=== PATIENT | female | born 1975 | race Caucasian/White ===

== ENCOUNTER 2018-03-01 15:19 | Inpatient (IN) | payer OTHER ==
[~2018-03-01] VITALS: Ht 170.2 cm; Wt 120.7 kg
[2018-03-01 15:25] VITALS: BP 152/92
--- NOTE | 2018-03-01 15:28 | NUR ---
PT AMBULATES TO BED 7
--- NOTE | 2018-03-01 15:30 | NUR ---
42 YO F BIB FAMILY W/ C/O DIZZINESS X TODAY. PT STATES THAT SHE "FEELS WEIRD". REPORTS INTERMITTENT NAUSEA, DENIES VOMITING. DENIES INJURY TO HEAD NECK. AAOX4, NEURO APPROPRIATE. PERRLA INTACT, PUPILS 3MM. SKIN IS INTACT, PINK/WARM/DRY; AAOX4, PERRL, WITH EVEN AND STEADY GAIT; LUNGS CLEAR BL, BREATHING UNLABORED; HR EVEN AND REGULAR, BL PERIPHERAL PULSES PRESENT; BS ACTIVE X4, NO TENDERNESS TO PALPATION, NO HEPATOSPLENOMEGALLY PALPATED, RESONANT TO PERCUSSION; PT DENIES ANY FEVER, CP, SOB, OR COUGH AT THIS TIME; PT STATES 0/10 PAIN AT THIS TIME; VSS; PATIENT POSITIONED FOR COMFORT; HOB ELEVATED; BEDRAILS UP X2; BED DOWN. HX HTN RX DENIES
[2018-03-01] MEDS ORDERED: ONDANSETRON 4 MG TAB PO ONE (16:00)
[2018-03-01] MEDS ORDERED: MECLIZINE 25 MG TAB PO ONE (16:00)
--- NOTE | 2018-03-01 16:07 | NUR ---
XRAY AT BEDSIDE
--- NOTE | 2018-03-01 16:11 | NUR ---
LAB AT BEDSIDE.
[2018-03-01 16:24] LABS: BASOPHILS # (AUTO) 0.1 K/uL (0.00-0.22); BASOPHILS % (AUTO) 0.7 % (0.0-2.0); EOSINOPHILS # (AUTO) 0.3 K/uL (0-0.4); EOSINOPHILS % (AUTO) 3.2 % (0.0-4.0); HEMATOCRIT 38.8 % (36-48); HEMOGLOBIN 12.6 g/dL (12.0-16.0); LYMPHOCYTES # (AUTO) 2.2 K/uL (2.5-16.5); LYMPHOCYTES % (AUTO) 23.5 % (20.5-51.1); MEAN CORPUSCULAR HEMOGLOBIN 27 pg (27-31); MEAN CORPUSCULAR HGB CONC 33 g/dL (33-37); MEAN CORPUSCULAR VOLUME 83.2 fL (80-94); MONOCYTES # (AUTO) 0.5 K/uL (0.8-1.0); MONOCYTES % (AUTO) 5.2 % (1.7-9.3); NEUTROPHILS # (AUTO) 6.4 K/uL (1.8-7.7); NEUTROPHILS % (AUTO) 67.4 % (42.2-75.2); PLATELET COUNT (AUTO) 297 K/uL (140-450); RED BLOOD CELL COUNT(AUTO) 4.66 MIL/uL (4.20-5.40); RED CELL DISTRIBUTION WIDTH 13.3 % (11.6-13.7); WHITE BLOOD COUNT (AUTO) 9.6 K/uL (4.8-10.8)
[2018-03-01 16:25] LABS: APPEARANCE,URINE CLEAR (CLEAR); BILIRUBIN,URINE NEGATIVE (NEGATIVE); BLOOD, URINE NEGATIVE (NEGATIVE); COLOR,URINE YELLOW (YELLOW); LEUKOCYTE ESTERASE ,URINE NEGATIVE (NEGATIVE); NITRITE, URINE NEGATIVE (NEGATIVE); UGLUCOSE NEGATIVE (NEGATIVE)
[2018-03-01 16:34] LABS: BARBITURATE, URINE NEG. ng/ml (NEG <=200); BENZODIAZEPINE, URINE NEG. ng/mL (NEG <=200); CANNABINOID, URINE NEG. ng/mL (NEG <=50); COCAINE, URINE NEG. ng/mL (NEG <=300); OPIATE, URINE NEG. ng/mL (NEG <=2000); PHENCYCLIDINE SCREEN,URINE NEG. ng/mL (NEG <=25)
[2018-03-01 16:36] LABS: ANION GAP 11.9 (8-16); CARBON DIOXIDE 29.6 mmol/L (21-32); CREATININE 0.6 mg/dL (0.6-1.3); POTASSIUM 3.5 mmol/L (3.5-5.1)
[2018-03-01 16:41] LABS: ALBUMIN 3.6 g/dL (3.4-5.0); TOTAL BILIRUBIN 0.3 mg/dL (0.0-1.0)
[2018-03-01 16:47] LABS: PROTHROMBIN TIME 9.5 secs (10.8-13.4)
[2018-03-01] MEDS ORDERED: METOPROLOL 25 MG TAB PO ONE (16:50)
[2018-03-01] MEDS ORDERED: HYDROcodone/APAP 5/325 MG 1 TAB TAB PO PRN ×2 (18:30)
[2018-03-01] MEDS ORDERED: LORazepam 2 MG/ML VIAL IVP PRN (18:30)
[2018-03-01] MEDS ORDERED: ACETAMINOPHEN 325 MG TAB PO PRN (18:30)
[2018-03-01] MEDS ORDERED: ONDANSETRON 4 MG/2 ML VIAL IVP PRN (18:30)
--- NOTE | 2018-03-01 19:10 | NUR ---
Pt report given to OBIE COOPER. Transfer of care at this time.
--- NOTE | 2018-03-01 19:10 | NUR ---
ASSUMED CARE OF PT FROM [facility]
--- NOTE | 2018-03-01 19:20 | NUR ---
PT ARRIVED ON UNIT VIA GURNEY WITH ER NURSE. PT ABLE TO AMBULATE FROM [facility] INTO BED. PT IS AAOX4. PT IS ON RA WITH RESPIRATIONS EVEN AND UNLABORED. PT SKIN IS INTACT. IV ACCESS IN L AC 20G, SALINE LOCKED. IV IS PATENT AND INTACT. MRSA SWAB COLLECTED. NO C/O PAIN AT THIS TIME. TELE MONITOR APPLIED. ORIENTED PT TO ROOM AND USE OF CALL LIGHT. BOARD UPDATED. BED IS LOCKED, LOW POSITION WITH SIDE RAILS UP X2. CALL LIGHT IS WITHIN REACH. WILL CONTINUE TO MONITOR.
--- NOTE | 2018-03-01 19:27 | NUR ---
Patient will be admitted to care of DR LEMUS. Admited to TELE. Will go to [id number]. Belongings list completed. Report to KENNETH HUYNH.
[2018-03-01 19:40] VITALS: BP 130/77
--- NOTE | 2018-03-01 20:49 | NUR ---
PT C/O HEADACHE. TYLENOL GIVEN. PT TOLERATED WELL. NO S/SX OF DISTRESS. WILL CONTINUE TO MONITOR.
[2018-03-01] MEDS ORDERED: INFLUENZA VIRUS VACCINE QUAD 0.5 ML SYR IMVAC PRN (22:15)
--- NOTE | 2018-03-01 23:00 | NUR ---
PT NO LONGER C/O HEADACHE. PT RESTING COMFORTABLY IN BED. NO S/SX OF DISTRESS. WILL CONTINUE TO MONITOR PT.
[2018-03-02] VITALS: BP 135/66
--- NOTE | 2018-03-02 01:03 | NUR ---
PT ASLEEP IN BED. NO S/SX OF DISTRESS. WILL CONTINUE TO MONITOR PT.
--- NOTE | 2018-03-02 03:08 | NUR ---
NO CHANGE IN CONDITION. PT ASLEEP IN BED. NO S/SX OF DISTRESS. WILL CONTINUE TO MONITOR PT.
[2018-03-02 04:00] VITALS: BP 130/76
--- NOTE | 2018-03-02 05:08 | NUR ---
PT IS ASLEEP IN BED. NO S/SX OF DISTRESS. WILL CONTINUE TO MONITOR.
[2018-03-02 06:45] LABS: BASOPHILS % (AUTO) 0.5 % (0.0-2.0); EOSINOPHILS # (AUTO) 0.3 K/uL (0-0.4); EOSINOPHILS % (AUTO) 4.5 % (0.0-4.0); HEMATOCRIT 38.2 % (36-48); HEMOGLOBIN 12.5 g/dL (12.0-16.0); LYMPHOCYTES # (AUTO) 2.1 K/uL (2.5-16.5); LYMPHOCYTES % (AUTO) 28.8 % (20.5-51.1); MEAN CORPUSCULAR HEMOGLOBIN 27 pg (27-31); MEAN CORPUSCULAR HGB CONC 33 g/dL (33-37); MEAN CORPUSCULAR VOLUME 83.6 fL (80-94); MONOCYTES # (AUTO) 0.4 K/uL (0.8-1.0); MONOCYTES % (AUTO) 5.7 % (1.7-9.3); NEUTROPHILS # (AUTO) 4.4 K/uL (1.8-7.7); NEUTROPHILS % (AUTO) 60.5 % (42.2-75.2); PLATELET COUNT (AUTO) 291 K/uL (140-450); RED BLOOD CELL COUNT(AUTO) 4.57 MIL/uL (4.20-5.40); RED CELL DISTRIBUTION WIDTH 13.5 % (11.6-13.7); WHITE BLOOD COUNT (AUTO) 7.3 K/uL (4.8-10.8)
[2018-03-02 07:14] LABS: ALBUMIN 3.3 g/dL (3.4-5.0); ANION GAP 14.3 (8-16); CARBON DIOXIDE 26.2 mmol/L (21-32); CREATININE 0.6 mg/dL (0.6-1.3); POTASSIUM 3.5 mmol/L (3.5-5.1); TOTAL BILIRUBIN 0.2 mg/dL (0.0-1.0)
--- NOTE | 2018-03-02 07:21 | NUR ---
ENDORSED PT TO DAY SHIFT NURSE FOR CONTINUITY OF CARE. PT IN STABLE CONDITION.
--- NOTE | 2018-03-02 07:25 | NUR ---
RECEIVED PT FROM RESEARCH PHARMACIST NURSE, PT IS AWAKE AND LYING ON THE BED SIDE RAILS UP AND CALL LIGHT WITHIN REACH, PT HAS AN IV LINE ON THE LEFT AC G. 20 ON SALINE LOCK. PTRDENIES PAIN AT THIS TIME. NO SIGN OF DISTRESS NOTED AND WILL CONTINUE TO MONITOR PT.
[2018-03-02 08:00] VITALS: BP 125/73
--- NOTE | 2018-03-02 08:48 | NUR ---
PATIENT HAS BEEN SCREENED AND CATEGORIZED HIGH NUTRITION RISK. PATIENT WILL BE SEEN WITHIN 1-2 DAYS OF ADMISSION. 03/02/18-03/03/[address]
[2018-03-02] MEDS ORDERED: ASPIRIN 81 MG TAB.CHEW PO SCH (09:00)
[2018-03-02] MEDS ORDERED: ENOXAPARIN 40 MG/0.4 ML SYR SUBQ SCH (09:00)
--- NOTE | 2018-03-02 09:02 | NUR ---
ADMINISTERED FLU VACCINE. DISCHARGE TEACHING AND PAPERWORK REVIEWED AND SIGNED. PT VERBALIZED UNDERSTANDING. TELE MONITOR BOX, IV AND WRISTBAND REMOVED. PT HAS ALL BELONGINGS. PT LEFT UNIT ACCOMPANIED BY . PT IN STABLE CONDITION, NO S/SX OF DISTRESS. Addendum: 03/02/18 at 2102 by Katarina Ruggiero RN WRONG TIME ENTERED 2101
--- NOTE | 2018-03-02 09:35 | NUR ---
PT IS AWAKE WITH FAMILY ON THE BEDSIDE, PT DENIES PAIN, MEDICATIONS GIVEN VIA ORAL AND SUBQ,PT TOLERATED IT AND NO SIGN OF DISTRESS NOTED AND WILL CONTINUE TO MONITOR PT.
--- NOTE | 2018-03-02 11:56 | NUR ---
CM NOTE PER DAYAMI OF [facility] (PCP) PH# [phone], PATIENT IS SCHEDULED FOR OUTPATIENT FOLLOW UP APPOINTMENT ON MARCH 09 2018 2:00PM AT THE CLINIC IN [facility] [place] [address]. I GAVE A COPY OF THE SCHEDULE TO PATIENT.
[2018-03-02 12:00] VITALS: BP 137/78
--- NOTE | 2018-03-02 12:10 | NUR ---
PT IS AWAKE AND SEATED ON THE BED WITH FAMILY ON THE BEDSIDE, V/S TAKEN AND IS WITHIN NORMAL LIMITS, PT DENIES PAIN. WILL CONTINUE TO MONITOR PT.
--- NOTE | 2018-03-02 14:08 | NUR ---
03/02/18 RD INITIAL ASSESSMENT COMPLETED PLEASE REFER TO NUTRITION ASSESSMENT UNDER CARE ACTIVITY FOR ESTIMATED NUTRITIONAL NEEDS. 1. CONTINUE 2GM NA DIET TOLERATED 2. RECOMMEND ADVANCING DIET TO CARDIAC 3. PROVIDED NUTRITION EDUCATION ON HEART HEALTHY, LOW SODIUM DIET 4. FOLLOW UP WITH NUTRITION EDUCATION ON HEALTHY EATING HABITS 5. RD TO FOLLOW-UP 3-5 DAYS, MODERATE RISK VARUN GAXIOLA RD
[2018-03-02 16:00] VITALS: BP 127/79
--- NOTE | 2018-03-02 16:30 | NUR ---
PT IS AWAKE AND SEATED ON THE BED WITH FAMILY ON THE BEDSIDE, V/S TAKEN AND IS WITHIN NORMAL LIMITS. PT DENIES PAIN AND WILL CONTINUE TO MONITOR PT.
--- NOTE | 2018-03-02 18:40 | NUR ---
PT IS AWAKE AND SEATED ON THE BED WITH FAMILY ON THE BEDSIDE, PT DENIES PAIN. WILL CONTINUE TO MONITOR.
--- NOTE | 2018-03-02 19:30 | NUR ---
ENDORSED PT TO LINO FOR CONTINUITY OF CARE, PT IS STABLE AT THIS TIME.
--- NOTE | 2018-03-02 19:30 | NUR ---
RECEIVED REPORT FROM FUR LINER NURSE, YOANA, AT PT BEDSIDE. PT IN STABLE CONDITION. PT FAMILY IS AT BEDSIDE. PT IS AAOX4. PT IS ON RA WITH RESPIRATIONS EVEN AND UNLABORED. PT SKIN IS INTACT. IV ACCESS IN L AC 20G, SALINE LOCKED. IV IS PATENT AND INTACT. NO C/O PAIN AT THIS TIME. BOARD UPDATED. BED IS LOCKED, LOW POSITION WITH SIDE RAILS UP X2. CALL LIGHT IS WITHIN REACH. WILL CONTINUE TO MONITOR.
--- NOTE | 2018-03-02 19:45 | NUR ---
DR PHILLIPS CAME TO SEE PT. PER PT IS OKAY TO BE DISCHARGED. SPOKE WITH LEAD ELECTRICAL ENGINEER , DR VASQUEZ, VIVIEN TO DISCHARGE PT. ORDER ENTERED.
[2018-03-02 20:15] VITALS: BP 148/82
[2018-03-02] MEDS ORDERED: METOPROLOL 25 MG TAB PO SCH (21:00)
--- NOTE | 2018-03-02 21:02 | NUR ---
ADMINISTERED FLU VACCINE. DISCHARGE TEACHING AND PAPERWORK REVIEWED AND SIGNED. PT VERBALIZED UNDERSTANDING. TELE MONITOR BOX, IV AND WRISTBAND REMOVED. PT HAS ALL BELONGINGS. PT LEFT UNIT ACCOMPANIED BY . PT IN STABLE CONDITION, NO S/SX OF DISTRESS.
== END 2018-03-02 21:03 | disposition home or self-care (01) | DRG 201 ==
LOC: MED 15:19 → MTU 18:29
PROVIDERS: ADMIT Hospitalist; ATTEND Hospitalist
DX: I49.3 Ventricular premature depolarization (principal); E66.01 Morbid (severe) obesity due to excess calories; I10 Essential (primary) hypertension; Z90.49 Acquired absence of other specified parts of digestive tract; Z86.73 Personal history of transient ischemic attack (TIA), and cerebral infarction without residual deficits; Z68.41 Body mass index [BMI] 40.0-44.9, adult; Z98.891 History of uterine scar from previous surgery; Z23 Encounter for immunization
CPT/HCPCS: 36415; 71045; 80053; 80305; 81003; 83735; 84443; 84484; 85025; 85379; 85610; 87081; 90658; 93005; 99285; J1650; J8597; Q0162

== ENCOUNTER 2018-12-23 22:42 | Emergency (ER) | payer SELFPAY ==
[~2018-12-23] VITALS: Ht 172.7 cm; Wt 113.4 kg
[2018-12-23 22:50] VITALS: BP 133/92
--- NOTE | 2018-12-24 00:35 | NUR ---
PATIENT LEFT WITHOUT BEING SEEN BY DR. MENDIETA. NO FURTHER CARE PROVIDED FOR PATIENT.
== END 2018-12-24 00:35 | disposition left against medical advice (07) ==
LOC: MED 22:42
DX: R20.0 Anesthesia of skin (principal); Z53.21 Procedure and treatment not carried out due to patient leaving prior to being seen by health care provider
CPT/HCPCS: 93005